=== PATIENT | male | born 1965 | race Caucasian/White ===

== ENCOUNTER 2020-08-15 22:47 | Emergency (ER) | payer MEDICAID ==
[~2020-08-15] VITALS: Ht 177.8 cm; Wt 113.4 kg
--- NOTE | 2020-08-15 23:09 | NUR ---
PT AAOX4. BIBSELF C/O L SHOUDLER PAIN RADIATING TO L HAND X5 DAYS. MD AT BEDSIDE FOR EVAL. SHERLEYIITJOAQUIN ORDERS.
[2020-08-15] MEDS ORDERED: ACETAMINOPHEN 325 MG TABLET ONE (23:14)
[2020-08-15] MEDS: ACETAMINOPHEN 325 MG TABLET PO ONE (23:16)
[2020-08-16] MEDS ORDERED: CYCL5TAB PO (00:12)
[2020-08-16] MEDS ORDERED: ACET-73 PO (00:12)
--- NOTE | 2020-08-16 00:35 | NUR ---
Patient discharged to home in stable condition. Written and verbal after care instructions given. Patient verbalizes understanding of instruction and RX. Pt ambulated out of ED. VSS.
[2020-08-16 01:05] VITALS: BP 142/79
[2020-08-17] MEDS ORDERED: HYDR-3972 PO (20:28)
== END 2020-08-16 00:35 | disposition home or self-care (01) ==
LOC: ER 22:47
DX: M54.12 Radiculopathy, cervical region (principal); Z79.899 Other long term (current) drug therapy
CPT/HCPCS: 70490-TC; 73030-TC

== ENCOUNTER 2020-08-17 17:35 | Emergency (ER) | payer MEDICAID ==
[~2020-08-17] VITALS: Ht 177.8 cm; Wt 127.9 kg
[~2020-08-17 17:35] MED LIST: ACET-73 PO; CYCL5TAB PO
[2020-08-17] MEDS ORDERED: DEXAMETHASONE SOD PHOSPHATE 10 MG/ML VIAL IM ONE (18:00)
[2020-08-17] MEDS ORDERED: IBUPROFEN 600 MG TABLET PO ONE (18:00)
[2020-08-17] MEDS ORDERED: HYDROCODONE/APAP 5/325MG TABLET PO ONE (18:00)
--- NOTE | 2020-08-17 18:00 | NUR ---
LUE BURNING PAIN SINCE THURSDAY. WAS HAVING L SIDED CHEST PAIN 3 HRS AGO. PATIENT A/OX4, BREATHING EVEN AND UNLABORED, AMBULATORY WITH STEADY, HOLDING LEFT ARM DUE TO PAIN.
[2020-08-17] MEDS ORDERED: HYDROCODONE/APAP 5/325MG TABLET ONE (18:10)
[2020-08-17] MEDS ORDERED: IBUPROFEN 400 MG TABLET ONE (18:10)
[2020-08-17] MEDS ORDERED: DEXAMETHASONE SOD PHOSPHATE 10 MG/ML VIAL ONE (18:10)
--- NOTE | 2020-08-17 19:05 | NUR ---
REC'D REPORT FROM TED JJ FOR TROY
--- NOTE | 2020-08-17 19:15 | NUR ---
ENDORSED TO MARIFER JEAN.
[2020-08-17] MEDS ORDERED: HYDR-3972 PO (20:28)
--- NOTE | 2020-08-17 21:08 | NUR ---
PT CLEARED FOR DISCHARGE PER DR. RICHARDSON. PT RECEIVED DISCHARGE INSTRUCTIONS. PT VERBALIZED UNDERSTANDING. PT AMBULATORY WITH STEADY GAIT.
[2020-08-17 21:09] VITALS: BP 158/88
== END 2020-08-17 21:10 | disposition home or self-care (01) ==
LOC: ER 17:38
DX: M54.2 Cervicalgia (principal); M79.602 Pain in left arm; R20.2 Paresthesia of skin; Z79.899 Other long term (current) drug therapy
CPT/HCPCS: 71045; 73060; 93005; 96372; 99284; J1100

== ENCOUNTER 2020-09-20 06:24 | Emergency (ER) | payer MEDICAID ==
[~2020-09-20] VITALS: Ht 177.8 cm; Wt 117.9 kg
[~2020-09-20 06:24] MED LIST changes: +HYDR-3972 PO
--- NOTE | 2020-09-20 06:35 | NUR ---
PT BIBSELF C/O L SIDE CHEST PAIN X2 DAYS. DESCRIBED SHARP, BURNING, SQUEEZING. PT ALSO C/O NAUSEA. PT STATES PAIN BECOMES SO SEVERE, IT WAKES HIM UP AT NIGHT. DENIES HEADACHE, DIZZINESS, SOB. PT AAOX4. RESPIRATIONS EVEN AND UNLABORED. AMBULATORY WITH STEADY GAIT. NO ACUTE DISTRESS NOTED AT THIS TIME. PT PLACED IN GOWN AND ON CONTINUOUS SAUSAGE TIER AND PULSE OX, WILL CONTINUE TO MONITOR
--- NOTE | 2020-09-20 06:45 | NUR ---
IV INITIATED R AC 18G. LABS DRAWN FROM SITE. PRODUCTION SERVICE MANAGER AT BEDSIDE FOR COLLECTION. IV INTACT AND PATENT, PLACED ON SALINE LOCK.
--- NOTE | 2020-09-20 06:53 | NUR ---
RADIOLOGY AT BEDSIDE FOR CXR
[2020-09-20 06:56] LABS: BASOPHILS # (AUTO) 0.1 /CMM (0.0-0.2); BASOPHILS % (AUTO) 1.1 % (0.0-2.0); EOSINOPHILS % (AUTO) 3.4 % (0.0-6.0); HEMATOCRIT 48 % (39-51); HEMOGLOBIN 16.5 g/dL (13.5-17.5); LYMPHOCYTES # (AUTO) 2.4 /CMM (0.8-4.8); LYMPHOCYTES % (AUTO) 31.2 % (20.0-44.0); MEAN CORPUSCULAR HGB CONC 35 g/dl (31.0-36.0); MEAN CORPUSCULAR VOLUME 96 fL (80-96); MONOCYTES # (AUTO) 0.5 /CMM (0.1-1.30); MONOCYTES % (AUTO) 6.1 % (2.0-12.0); NEUTROPHILS # (AUTO) 4.6 /CMM (1.8-8.9); NEUTROPHILS % (AUTO) 58.2 % (43.0-81.0); PLATELET COUNT (AUTO) 210 /CMM (150-450); RED BLOOD CELL COUNT(AUTO) 4.94 MIL/uL (4.5-6.0); WHITE BLOOD COUNT (AUTO) 7.8 K/uL (4.3-11.0)
[2020-09-20 07:05] LABS: CALCIUM, SERUM 8.8 mg/dL (8.5-10.1); CARBON DIOXIDE 30 mmol/L (21-32); CHLORIDE 101 mmol/L (98-107); CREATININE 0.9 mg/dL (0.6-1.3); GLUCOSE 127 mg/dL (74-106); POTASSIUM 3.7 mmol/L (3.5-5.1); SODIUM SERUM 136 mmol/L (136-145); UREA NITROGEN, BLOOD 10 mg/dL (7-18)
--- NOTE | 2020-09-20 07:15 | NUR ---
REPORT GIVEN TO TED ALVAREZ FOR [facility]OY
--- NOTE | 2020-09-20 07:19 | NUR ---
RECEIVED REPORT FROM TED CAZARES FOR [facility]OY. PT IS AAOX4, NOT IN RESPIRATORY DISTRESS, V/S STABLE, KEPT RESTED AND COMFORTABLE. WILL CONTINUE TO MONITOR.
[2020-09-20] MEDS ORDERED: KETOROLAC TROMETHAMINE 15 MG/ML VIAL ONE (07:32)
[2020-09-20] MEDS: KETOROLAC TROMETHAMINE INJ 30 MG/ML VIAL IV ONE (07:35)
[2020-09-20 07:41] LABS: BILIRUBIN,URINE NEGATIVE (NEGATIVE); COLOR,URINE YELLOW (YELLOW); LEUKOCYTE ESTERASE ,URINE NEGATIVE (NEGATIVE); NITRITE, URINE NEGATIVE (NEGATIVE); PROTEIN,URINE NEGATIVE (NEGATIVE); UGLUCOSE NEGATIVE (NEGATIVE); UROBILINOGEN,URINE 0.2 EU/dL (0.2)
[2020-09-20 08:24] LABS: ALBUMIN 4.3 g/dL (3.4-5.0); BILIRUBIN,DIRECT 0.1 mg/dL (0.0-0.2); BILIRUBIN,TOTAL 0.5 mg/dL (0.2-1.0); TOTAL PROTEIN, SERUM 8.2 g/dL (6.4-8.2)
[2020-09-20] MEDS ORDERED: IBUP-1955 PO (08:31)
[2020-09-20 08:42] VITALS: BP 137/57
--- NOTE | 2020-09-20 08:42 | NUR ---
IV removed. Catheter intact and site benign. Pressure and 4x4 applied to site. No bleeding noted. Patient discharged to home in stable condition. Written and verbal after care instructions given. Patient verbalizes understanding of instruction.
== END 2020-09-20 08:44 | disposition home or self-care (01) ==
LOC: ER 06:29
DX: R07.89 Other chest pain (principal); R07.81 Pleurodynia; Z79.899 Other long term (current) drug therapy
CPT/HCPCS: 36415; 71045; 71046; 80048; 80076; 81003; 83690; 84484; 85025; 93005 ×2; 96374; 99285; J1885